=== PATIENT | male | born 1970 | race Caucasian/White ===

== ENCOUNTER 2016-12-18 17:45 | Emergency (ER) | payer BC, MEDICARE ==
[~2016-12-18] VITALS: Ht 182.9 cm; Wt 90.0 kg
[2016-12-18 17:47] VITALS: BP 178/111; PULSE 94; RESP 16; TEMP 98.1; O2SAT 99
--- NOTE | 2016-12-18 18:58 | RADRPT ---
EXAM DATE/TIME: 12/18/2016 18:46 [place] COMPARISON: No previous studies available for comparison. INDICATIONS : Pain from fall. MEDICAL HISTORY : None. SURGICAL HISTORY : None. ENCOUNTER: Initial ACUITY: 2 days PAIN SCORE: 10/10 LOCATION: Right wrist. FINDINGS: There is a comminuted oblique fracture of the distal right radius in the metaphysis and metadiaphysea l region. There is approximately 1/2 shaft width of dorsal displacement and about 8 mm of lateral dis placement. The articular surfaces are intact. CONCLUSION: Nonarticular comminuted acute fracture of the distal radius with mild dorsal and lateral displacement . Mac Robledo MD on December 18, 2016 at 18:55 Board Certified Radiologist. This report was verified electronically.
[2016-12-18] MEDS ORDERED: ACETAMINOPHEN/HYDROcodone 325 MG/5 MG TAB PO ONE (19:15)
--- NOTE | 2016-12-18 19:19 | PD ---
HPI Chief Complaint: Injury Time Seen by Provider: 19:19 Travel History International Travel<30 days: No Contact w/Intl Traveler<30days: No Traveled to known affect area: No History of Present Illness HPI 46 [place] with history of hypertension presents to emergency department for evaluation right wrist pain. Patient states that 2 days ago he tripped, landing on outstretched right upper extremity and sustained a wrist injury. In the incident she did not strike his head or lose consciousness. Of the last 2 days he has had worsening right wrist pain with some swelling. Denies any alteration in sensation. Has no other symptoms to report. PFSH Past Medical History Hypertension: Yes Social History Alcohol Use: Yes Tobacco Use: Yes Allergies-Medications (Allergen,Severity, Reaction): Coded Allergies: No Known Allergies (Unverified , 12/18/16) Reported Meds & Prescriptions Reported Meds & Active Scripts Active Lortab (Hydrocodone-Acetaminophen) 5-325 Mg Tab 1 Tab PO Q6H PRN Ibuprofen 800 Mg Tab 800 Mg PO Q8H PRN Review of Systems Except as stated in HPI: all other systems reviewed are Neg Physical Exam Narrative GENERAL: Well-nourished, well-developed patient, ambulatory no acute distress SKIN: Warm and dry. HEAD: Normocephalic. EYES: No scleral icterus. No injection or drainage. NECK: Supple, trachea midline. No JVD or lymphadenopathy. CARDIOVASCULAR: Regular rate and rhythm without murmurs, gallops, or rubs. RESPIRATORY: Breath sounds equal bilaterally. No accessory muscle use. GASTROINTESTINAL: Abdomen soft, non-tender, nondistended. EXTREMITY: There is swelling and tenderness of the right distal forearm and wrist. There is an obvious deformity. The skin is intact. Flexion and extension of the fingers is normal. The fingers are warm and well perfused. Sensation to light touch is intact in the hand. BACK: Nontender without obvious deformity. No CVA tenderness. Data Data Last Documented VS Vital Signs Date Time Temp Pulse Resp B/P Pulse Ox O2 Delivery O2 Flow Rate FiO2 12/18/16 17:47 98.1 94 16 178/111 99 Orders Wrist, Complete ([id number]) (12/18/16 ) Ice/Cold Pack (12/18/16 18:34) Acetamin-Hydrocod 325-5 Mg ([facility] 5-325 (2/24/17 19:15) Splint Or Brace Apply/Monitor (12/18/16 19:13) Sling Cradle Arm (12/18/16 ) Fiberglass Sugartong Sp Ad Arm (12/18/16 ) MDM Medical Decision Making Medical Screen Exam Complete: Yes Emergency Medical Condition: Yes Medical Record Reviewed: Yes Differential Diagnosis Fracture versus sprain versus dislocation versus contusion Narrative Course 46-year-old male presents to the emergency brought in for evaluation right wrist injury. X-ray imaging is complete. I discussed the patient with Dr. Abdullahi, orthopedic surgeon automotive salesperson, who states that it will need surgical repaired but this will likely not be able to be done for a couple of days. Patient does not want to be admitted today and is happy to be splinted and be discharged home. Dr. Abdullahi approved this plan. Patient is provided information on orthopedic follow-up. He agrees to return immediately with any acute worsening of symptoms. Last Impressions Wrist X-Ray 12/18/16 0000 Signed Impressions: Service Date/Time: Sunday, December 18, 2016 18:46 - CONCLUSION: Nonarticular comminuted acute fracture of the distal radius with mild dorsal and lateral displacement. Mac Robledo MD Diagnosis Primary Impression: Right wrist fracture Qualified Code: S62.101A - Right wrist fracture, closed, initial encounter Referrals: Mitul Abdullahi MD Orthopaedic Surgeon call for appointment Primary Care Physician Patient Instructions: General Instructions, Wrist Fracture in Adults (ED) Additional Instructions: Ice and elevate to reduce pain and swelling Do not remove your splint Do not get it wet Follow-up with your primary care provider Call orthopedic surgeon for appointment Return immediately to the ED with any acute worsening of symptoms Med/Other Pt SpecificInfo: Prescription(s) given Scripts Hydrocodone-Acetaminophen (Lortab)5-325 Mg Tab1 Tab PO Q6H PRN (PAIN GREATER THAN 5) #15 TAB Ref 0 Prov:Baldo Villegas MD 12/18/16 Ibuprofen 800 Mg Mmc013 Mg PO Q8H PRN (Pain/Inflammation) #30 TAB Ref 0 Prov:Alice Jaimes 12/18/16 Disposition: 01 DISCHARGE HOME Condition: Stable Alice Jaimes Dec 18, 2016 19:19
[2016-12-18] MEDS ORDERED: IBUP800T23 PO (19:55)
[2016-12-18] MEDS ORDERED: HYDR-3533 PO (19:58)
== END 2016-12-18 20:13 | disposition home or self-care (01) ==
LOC: NEPB 17:45
DX: S52.501A Unspecified fracture of the lower end of right radius, initial encounter for closed fracture (principal); I10 Essential (primary) hypertension; Z72.0 Tobacco use; W01.0XXA Fall on same level from slipping, tripping and stumbling without subsequent striking against object, initial encounter; Y93.9 Activity, unspecified; Y92.9 Unspecified place or not applicable
CPT/HCPCS: 29125; 73110